=== PATIENT | female | born 1995 ===

== ENCOUNTER → 2022-08-27 | Outpatient (CLI) | payer OTHER | LOC: LAB SHORT 18:43 → LAB 18:43 | PROVIDERS: Advanced Practice Midwife | DX: Z01.419 Encounter for gynecological examination (general) (routine) without abnormal findings (principal) | CPT/HCPCS: G0145 ==

== ENCOUNTER 2024-01-11 17:51 | Emergency (ER) | payer OTHER ==
[~2024-01-11] VITALS: Ht 167.6 cm; Wt 104.3 kg
[2024-01-11] MEDS ORDERED: BUPROPION XL150 M1 PO (18:40)
[2024-01-11] MEDS ORDERED: ESCITALOPRAM OXA5 MG PO (18:40)
[2024-01-11 20:17] LABS: Source, Urine Clean Catch
[2024-01-11 20:18] LABS: BASOPHILS ABSOLUTE AUTO 0.04 K/mm3 (0.00-0.23); BASOPHILS PERCENT AUTO 0 % (0-2); EOSINOPHILS ABSOLUTE AUTO 0.03 K/mm3 (0.00-0.68); EOSINOPHILS PERCENT AUTO 0 % (0-6); Hematocrit 38.3 % (33.0-51.0); Hemoglobin 12.9 g/dL (11.5-16.0); IMMATURE GRAN PERCENT AUTO 1 % (0-1); LYMPHOCYTES PERCENT AUTO 9 % (21-46); MONOCYTES ABSOLUTE AUTO 0.83 K/mm3 (0.16-1.47); MONOCYTES PERCENT AUTO 6 % (4-13); Mean Corpuscular HGB 31.6 pg (26.0-34.0); Mean Corpuscular HGB Conc 33.7 g/dL (31.5-36.5); Mean Corpuscular Volume 94 fL (80-100); NEUTROPHILS ABSOLUTE AUTO 11.52 K/mm3 (1.96-9.15); NEUTROPHILS PERCENT AUTO 84 % (41-73); Platelet Count 171 K/mm3 (150-400); RDW Coefficient Variation 12.5 % (11.7-14.2); RDW Standard Deviation 43.7 fL (35.1-46.3); Red Blood Cell Count 4.08 M/mm3 (3.80-5.20); White Blood Cell Count 13.72 K/mm3 (4.00-11.30)
[2024-01-11 20:22] LABS: Appearance, Urine Hazy (Clear); Bilirubin, Urine Neg (Neg); Blood, Urine Neg (Neg); Color, Urine Yellow (P-Yellow); Glucose Qualitative, Urine Neg (Neg); Ketones, Urine 4+ (Neg); Leukocyte Esterase, Urine Neg (Neg); Nitrite, Urine Neg (Neg); Protein, Urine 1+ (Neg); Urobilinogen, Urine 1+ (Normal); pH, Urine 6.5 (5.0-8.0)
[2024-01-11 20:38] LABS: Albumin, Blood 3.2 g/dL (3.4-5.0); Albumin/Globulin Ratio 0.9 (0.8-1.8); Bilirubin, Total 0.6 mg/dL (0.1-1.0); Bun/Creatinine Ratio 10.6 (12.0-20.0); Calcium, Blood 9.1 mg/dL (8.5-10.1); Creatinine, Blood 0.66 mg/dL (0.40-1.00); Globulin, Blood 3.7 g/dL (2.2-4.0); Potassium, Blood 3.7 mmol/L (3.5-5.5); Total Protein, Blood 6.9 g/dL (6.4-8.2)
[2024-01-11 20:39] LABS: Amorphous Mod (0-Heavy); Bacteria Mod /hpf; Mucus Light (0-Heavy); Red Blood Cells, Urine 0-2 /hpf (0-2); Squamous Epithelial Cells Rare /hpf (Few); Transitional Epithelial Cells Rare /hpf (0-Rare); White Blood Cells, Urine 0-2 /hpf (0-5)
[2024-01-11 20:55] VITALS: BP 130/83
== END 2024-01-11 20:55 | disposition home or self-care (01) ==
LOC: ER 17:51
PROVIDERS: Physician Assistant
DX: O9A.213 Injury, poisoning and certain other consequences of external causes complicating pregnancy, third trimester (principal); S01.511A Laceration without foreign body of lip, initial encounter; V89.2XXA Person injured in unspecified motor-vehicle accident, traffic, initial encounter; Z3A.28 28 weeks gestation of pregnancy; Z79.899 Other long term (current) drug therapy; Z91.010 Allergy to peanuts
CPT/HCPCS: 72070; 72100; 72170; 76815; 80053; 81001; 85025; 87086; 99284-25

== ENCOUNTER → 2024-01-25 | Outpatient (CLI) | payer OTHER ==
[~2024-01-25] MED LIST: BUPROPION XL150 M1 PO; ESCITALOPRAM OXA5 MG PO
== END ==
LOC: LAB SHORT 15:54 → LAB 15:54
DX: J02.9 Acute pharyngitis, unspecified (principal)
CPT/HCPCS: 87081

== ENCOUNTER → 2024-03-15 | Outpatient (CLI) | payer OTHER | LOC: LAB 10:01 → LAB SHORT 10:01 | DX: O09.92 Supervision of high risk pregnancy, unspecified, second trimester (principal) | CPT/HCPCS: 87081; 87150 ==

== ENCOUNTER 2024-04-05 03:29 | Inpatient (IN) | payer OTHER ==
[2024-04-05] VITALS (36 sets, daily range): BP systolic 108–142; BP diastolic 58–93
[~2024-04-05] VITALS: Ht 167.6 cm; Wt 99.1 kg
[~2024-04-05 03:29] MED LIST changes: +Methylergonovine Maleate 0.2MG / ML 1ML Amp IV ONE; +Misoprostol 200 MCG Tab PO ONE; +Tranexamic Acid 1000 MG/10 ML 10ML Vial (SDV) IV ONE
[2024-04-05] MEDS ORDERED: Ondansetron HCl 2 MG / ML 2ML Vial IV PRN (05:05)
[2024-04-05] MEDS ORDERED: Misoprostol 200 MCG Tab PR PRN (05:05)
[2024-04-05] MEDS ORDERED: Carboprost Tromethamine 250 MCG/ML 1ML Amp IM PRN (05:05)
[2024-04-05] MEDS ORDERED: Lactated Ringer's 1,000 ML IV PRN (05:05)
[2024-04-05] MEDS ORDERED: FentaNYL Citrate 50 MCG/ML 2 ML Injection IV PRN (05:05)
[2024-04-05] MEDS ORDERED: Misoprostol 200 MCG Tab BC PRN ×2 (05:05→21:10)
[2024-04-05] MEDS ORDERED: Oxytocin 10 Unit / ML Vial IM PRN (05:05)
[2024-04-05] MEDS ORDERED: Methylergonovine Maleate 0.2MG / ML 1ML Amp IM PRN ×2 (05:05→20:45)
[2024-04-05] MEDS ORDERED: OXYTOCIN/RINGER'S LACTATE 500 ML IV PRN (05:05)
[2024-04-05] MEDS ORDERED: Tranexamic Acid 100 ML IV SCH ×2 (05:05→21:10)
[2024-04-05] MEDS ORDERED: Acetaminophen 500 MG Tab PO PRN (05:05)
[2024-04-05] MEDS ORDERED: ePHEDrine Sulfate 50 MG/ML 1ML Injection XX PRN (05:10)
[2024-04-05] MEDS ORDERED: Calcium Carbonate 500 MG Tab Chew PO PRN (05:10)
[2024-04-05] MEDS ORDERED: FentaNYL 2mcg/ml-Bup 0.1% Epd 250 ML EPI PRN (05:10)
[2024-04-05] MEDS ORDERED: Lactated Ringer's 1,000 ML IV SCH ×3 (05:10→20:45)
[2024-04-05 05:42] LABS: BASOPHILS ABSOLUTE AUTO 0.03 K/mm3 (0.00-0.23); BASOPHILS PERCENT AUTO 0 % (0-2); EOSINOPHILS ABSOLUTE AUTO 0.04 K/mm3 (0.00-0.68); EOSINOPHILS PERCENT AUTO 0 % (0-6); Hematocrit 39.4 % (33.0-51.0); IMMATURE GRAN ABSOLUTE AUTO 0.05 K/mm3 (0.00-0.10); IMMATURE GRAN PERCENT AUTO 1 % (0-1); LYMPHOCYTES ABSOLUTE AUTO 1.39 K/mm3 (0.84-5.20); LYMPHOCYTES PERCENT AUTO 15 % (21-46); MONOCYTES PERCENT AUTO 8 % (4-13); Mean Corpuscular HGB 28.7 pg (26.0-34.0); Mean Corpuscular Volume 87 fL (80-100); Mean Platelet Volume 12.5 fL (9.1-12.4); NEUTROPHILS ABSOLUTE AUTO 7.04 K/mm3 (1.96-9.15); NEUTROPHILS PERCENT AUTO 76 % (41-73); Platelet Count 141 K/mm3 (150-400); RDW Coefficient Variation 14.3 % (11.7-14.2); RDW Standard Deviation 44.6 fL (35.1-46.3); Red Blood Cell Count 4.53 M/mm3 (3.80-5.20); White Blood Cell Count 9.25 K/mm3 (4.00-11.30)
[2024-04-05] MEDS ORDERED: Misoprostol 200 MCG Tab PO ONE (07:00)
[2024-04-05] MEDS ORDERED: Misoprostol 25 MCG Tab PO ONE (07:00)
[2024-04-05] MEDS ORDERED: FentaNYL Citrate 50 MCG/ML 2 ML Injection ONE (15:15)
[2024-04-05] MEDS ORDERED: Lidocaine 2%-Epineph 1:200000 20 ML SDV ONE (16:46)
[2024-04-05] MEDS ORDERED: Rho(D) Immune Globulin 300 MCG / SYR IM ONE ×3 (20:40→23:55)
[2024-04-05] MEDS ORDERED: Acetaminophen 325 MG TABLET PO PRN (20:40)
[2024-04-05] MEDS ORDERED: FLU VACC TS2024-25(6MOS UP)/PF 45 MCG/0.5 ML SYRINGE IM ONE (20:40)
[2024-04-05] MEDS ORDERED: Docusate Sodium 100 MG Cap PO PRN (20:40)
[2024-04-05] MEDS ORDERED: Lanolin Cream TOP PRN (20:40)
[2024-04-05] MEDS ORDERED: Benzocaine Topical Anesthetic Spray 60GM TOP PRN (20:40)
[2024-04-05] MEDS ORDERED: OXYTOCIN/RINGER'S LACTATE 500 ML IV SCH (20:40)
[2024-04-05] MEDS ORDERED: Ibuprofen 400 MG Tab PO PRN (20:45)
[2024-04-05] MEDS ORDERED: Ketorolac Tromethamine 30mg Vial IV PRN (20:45)
[2024-04-05] MEDS ORDERED: Witch Hazel/Glycerin PADS TOP PRN (20:45)
[2024-04-05 20:57] LABS: Source, Urine Foley catheter
[2024-04-05 21:00] LABS: Appearance, Urine Clear (Clear); Bilirubin, Urine Neg (Neg); Blood, Urine 5+ (Neg); Color, Urine Amber (P-Yellow); Glucose Qualitative, Urine Neg (Neg); Ketones, Urine 4+ (Neg); Leukocyte Esterase, Urine 1+ (Neg); Nitrite, Urine Neg (Neg); Protein, Urine 3+ (Neg); Urobilinogen, Urine NORM (Normal); pH, Urine 6.5 (5.0-8.0)
[2024-04-05] MEDS ORDERED: CeFAZolin Sodium 2,000 MG in NS 100 ML IV SCH (21:10)
[2024-04-05 21:12] LABS: Bacteria Many /hpf; Red Blood Cells, Urine 25-50 /hpf (0-2); Squamous Epithelial Cells Few /hpf (Few)
[2024-04-05 21:13] LABS: Mucus Light (0-Heavy)
[2024-04-05 21:25] LABS: Hematocrit 34.9 % (33.0-51.0); Hemoglobin 11.6 g/dL (11.5-16.0); Mean Corpuscular HGB 28.8 pg (26.0-34.0); Mean Corpuscular HGB Conc 33.2 g/dL (31.5-36.5); Mean Corpuscular Volume 87 fL (80-100); Mean Platelet Volume 12.3 fL (9.1-12.4); Platelet Count 147 K/mm3 (150-400); RDW Coefficient Variation 14.2 % (11.7-14.2); RDW Standard Deviation 44.9 fL (35.1-46.3); Red Blood Cell Count 4.03 M/mm3 (3.80-5.20); White Blood Cell Count 19.05 K/mm3 (4.00-11.30)
[2024-04-05] MEDS ORDERED: CeFAZolin Sodium 2,000 MG in NS 100 ML IV ONE (21:35)
[2024-04-05 22:01] LABS: International Normalized Ratio 0.96; Prothrombin Time Results 10.3 Sec (9.7-11.5)
[2024-04-06] VITALS (11 sets, daily range): BP systolic 106–126; BP diastolic 67–83
[2024-04-06 02:35] LABS: Mean Corpuscular HGB Conc 32.9 g/dL (31.5-36.5)
[2024-04-06 02:43] LABS: Hematocrit 34.7 % (33.0-51.0); Hemoglobin 11.4 g/dL (11.5-16.0); Mean Corpuscular HGB 28.7 pg (26.0-34.0); Mean Corpuscular Volume 87 fL (80-100); Mean Platelet Volume 12.3 fL (9.1-12.4); Platelet Count 144 K/mm3 (150-400); RDW Coefficient Variation 14.5 % (11.7-14.2); RDW Standard Deviation 46.1 fL (35.1-46.3); Red Blood Cell Count 3.97 M/mm3 (3.80-5.20)
[2024-04-06 02:44] LABS: White Blood Cell Count 17.38 K/mm3 (4.00-11.30)
[2024-04-06 02:50] LABS: International Normalized Ratio 0.97; Prothrombin Time Results 10.4 Sec (9.7-11.5)
[2024-04-06 02:56] LABS: BAND PERCENT MAN 4 % (0-8); BASOPHILS PERCENT MAN 0 % (0-2); EOSINOPHILS PERCENT MAN 0 % (0-6); LYMPHOCYTES ABSOLUTE MAN 0.69 K/mm3 (0.84-5.20); LYMPHOCYTES PERCENT MAN 4 % (21-46); MONOCYTES ABSOLUTE MAN 0.52 K/mm3 (0.16-1.47); MONOCYTES PERCENT MAN 3 % (4-13); NEUTROPHILS ABSOLUTE MAN 16.16 K/mm3 (1.96-9.15); SEG NEUTROPHILS PERCENT MAN 89 % (41-73); TOTAL CELLS COUNTED 100
[2024-04-06 08:47] LABS: Hemoglobin 9.9 g/dL (11.5-16.0); Mean Corpuscular HGB 28.1 pg (26.0-34.0); Mean Corpuscular HGB Conc 31.9 g/dL (31.5-36.5); Mean Corpuscular Volume 88 fL (80-100); Mean Platelet Volume 12.3 fL (9.1-12.4); Platelet Count 125 K/mm3 (150-400); RDW Coefficient Variation 14.6 % (11.7-14.2); RDW Standard Deviation 46.6 fL (35.1-46.3); Red Blood Cell Count 3.52 M/mm3 (3.80-5.20); White Blood Cell Count 15.04 K/mm3 (4.00-11.30)
[2024-04-06] MEDS ORDERED: Prenatal Vit/FE Fumarate/FA 1 Tab PO SCH (09:00)
[2024-04-06] MEDS ORDERED: Citalopram Hydrobromide 10 MG TAB PO SCH (09:00)
[2024-04-06] MEDS ORDERED: buPROPion HCL 150 MG TAB.SR.12H PO SCH (09:00)
[2024-04-06] MEDS ORDERED: FERSU300 PO (16:55)
[2024-04-06] MEDS ORDERED: PRENATAL TABLE1 EAC2 (16:57)
== END 2024-04-06 21:00 | disposition home or self-care (01) | DRG 806 ==
LOC: OBS 03:29 → BC 03:32 → OBS 05:07 → BC 05:12
PROVIDERS: Advanced Practice Midwife; Obstetrics & Gynecology; ADMIT Advanced Practice Midwife
PROC: 10E0XZZ Delivery of Products of Conception, External Approach (ICD-10-PCS; principal; 2024-04-05)
PROC: 10907ZC Drainage of Amniotic Fluid, Therapeutic from Products of Conception, Via Natural or Artificial Opening (ICD-10-PCS; 2024-04-05)
DX: O42.02 Full-term premature rupture of membranes, onset of labor within 24 hours of rupture (principal); O72.1 Other immediate postpartum hemorrhage; Z37.0 Single live birth; O99.354 Diseases of the nervous system complicating childbirth; Z3A.40 40 weeks gestation of pregnancy; O48.0 Post-term pregnancy; O70.0 First degree perineal laceration during delivery; O99.344 Other mental disorders complicating childbirth; F32.A Depression, unspecified; F41.9 Anxiety disorder, unspecified; G43.909 Migraine, unspecified, not intractable, without status migrainosus; O12.14 Gestational proteinuria, complicating childbirth; O99.214 Obesity complicating childbirth; O77.0 Labor and delivery complicated by meconium in amniotic fluid
CPT/HCPCS: 36415; 51702; 59025; 81001; 81003; 85025; 85027; 85384; 85460; 85610; 85730; 86850; 86900; 86901; 86923; 87210; 99214; A9270; J0690; J1885; J2210; J2590; J2791; J3010; J7120

== ENCOUNTER → 2025-06-14 | Outpatient (CLI) | payer OTHER ==
[~2025-06-14] MED LIST changes: +FERSU300 PO; -Methylergonovine Maleate 0.2MG / ML 1ML Amp IV ONE; -Misoprostol 200 MCG Tab PO ONE; +PRENATAL TABLE1 EAC2; -Tranexamic Acid 1000 MG/10 ML 10ML Vial (SDV) IV ONE
[2025-06-14 13:04] LABS: Source, Urine Clean Catch
[2025-06-14 18:15] LABS: Red Blood Cells, Urine 0-2 /hpf (0-2)
[2025-06-14 18:22] LABS: U Amphetamine Screen Not Detected; U Barbiturate Screen DETECTED; U Benzodiazapine Screen Not Detected; U Buprenorphine Screen Not Detected; U Cannabinoids Screen Not Detected; U Cocaine Screen Not Detected; U Methadone Screen Not Detected; U Methamphetamine Screen Not Detected; U Opiates Screen Not Detected; U Oxycodone Screen Not Detected; U Phencyclidine Screen Not Detected
[2025-06-24 08:54] LABS: BUTALBITAL, URN, QUANT 904 ng/mL; PENTOBARBITAL, URN, QUANT <50 ng/mL; PHENOBARBITAL, URN, QUANT <50 ng/mL
== END ==
LOC: LAB SHORT 11:00 → LAB 11:00
PROVIDERS: Advanced Practice Midwife
DX: Z34.81 Encounter for supervision of other normal pregnancy, first trimester (principal)
CPT/HCPCS: 81015; 87086; G0480